=== PATIENT | male | born 2000 | race Two or more races ===

== ENCOUNTER 2024-10-10 08:40 | Emergency (ER) | payer SELFPAY ==
[2024-10-10 08:41] VITALS: BMI 28.2
[2024-10-10 08:45] VITALS: BP 112/80; PULSE 95; RESP 18; TEMP 36.6; O2SAT 96; BMI 28.5
--- NOTE | 2024-10-10 09:09 | PD.EDRME ---
Rapid Medical Screening Exam E Arrival date/time: 10/10/24 08:40 This is a 24-year-old male comes in with complaints of right lower abdominal pain has been going on for the past 2 days. Patient denies any nausea vomiting diarrhea. Patient states that he feels like he has a lot of air/gas in his stomach. Patient denies any past medical history. I have greeted and performed a focused initial assessment of this patient. Initial appropriate labs ordered at this time. A comprehensive ED assessment and evaluation of the patient and analysis of all test and completion of medical decision making process will be conducted by additional ED provider. Chief Complaint: Abdominal Pain Time Seen by Provider: 10/10/24 08:51 Vital signs: Vital Signs Temperature 97.8 F 10/10/24 08:45 Pulse Rate 95 10/10/24 08:45 Respiratory Rate 18 10/10/24 08:45 Blood Pressure 112/80 10/10/24 08:45 Pulse Oximetry (%) 96 10/10/24 08:45 Oxygen Delivery Method Room Air 10/10/24 08:45
[2024-10-10 10:29] LABS: Collection Type, Urine Voided
[2024-10-10 10:45] LABS: Basophils # (Auto) 0.1 Thou/mm3 (0.0-0.2); Basophils % (Auto) 1 % (0-2.5); Eosinophils # (Auto) 0.1 Thou/mm3 (0.0-0.5); Eosinophils % (Auto) 1 % (0-10); Hematocrit 48.5 % (41.0-53.0); Hemoglobin 16.2 g/dL (13.5-16.0); Immature Granulocytes % (Auto) 0 % (0-0); Immature Granulocytes Auto 0.02 Thou/mm3 (0.00-0.00); Lymphocytes # (Auto) 2.4 Thou/mm3 (1.0-4.8); Lymphocytes % (Auto) 26 % (10-50); Mean Corpuscular HGB Conc 33.4 g/dl (31.0-37.0); Mean Corpuscular Hemoglobin 28.2 pg (25.0-35.0); Mean Corpuscular Volume 85 fL (80-100); Monocytes # (Auto) 0.7 Thou/mm3 (0.0-0.8); Monocytes % (Auto) 7 % (0-12); Neutrophils # (Auto) 6.1 Thou/mm3 (1.8-7.7); Neutrophils % (Auto) 66 % (37-80); Nucleated Red Blood Cell % 0 /100 WBC (0); Platelet Count 205 Thou/mm3 (140-440); RDW Standard Deviation 42.1 fL (35.1-43.9); Red Blood Count 5.74 Miln/mm3 (4.50-5.90); White Blood Count 9.4 Thou/mm3 (3.8-10.6)
[2024-10-10 10:50] LABS: Alanine Aminotransferase 70 U/L (10-49); Albumin, Serum 4.8 gm/dL (3.5-5.0); Albumin/Globulin Ratio 1.8 (1.2-2.2); Alkaline Phosphatase 86 U/L (46-116); Anion Gap 8 (7-16); Aspartate Amino Transferase 27 U/L (0-34); BUN/Creatinine Ratio 12 Ratio (12-20); Bilirubin,Total 0.8 mg/dL (0.3-1.2); Blood Urea Nitrogen 11 mg/dL (9-23); Calcium 9.5 mg/dL (8.3-10.6); Calcium (Corrected) 9.5 mg/dL (8.5-10.1); Carbon Dioxide 29.2 mMol/L (20.0-31.0); Chloride 104 mMol/L (98-107); Creatinine (Component) 0.9 mg/dL (0.6-1.3); Estimated Creatinine Clearance 125.9 mL/min (>60); Globulin 2.7 gm/dL (2.3-3.5); Glucose 86 mg/dL (74-106); Lipase 64 U/L (12-53); Osmolality,Calculated 279 (275-295); Potassium 4.2 mMol/L (3.4-5.1); Sodium 141 mMol/L (136-145); Total Protein 7.5 gm/dL (5.7-8.2); eGFR > 60 See Note
[2024-10-10 10:55] LABS: Amorphous Crystals,Urine Present (Absent); Bilirubin,Urine Negative (Negative); Blood,Urine Trace (Negative); Clarity,Urine Turbid (Clear/Hazy); Color,Urine Yellow (Lt Yel-Yel); Culture Indicated,Urine Not Indicated; Glucose, Urine Negative (Negative); Ketones,Urine Negative (Negative); Leukocyte Esterase,Urine Negative (Negative); Nitrite,Urine Negative (Negative); Protein,Urine 2+ (Neg - Trace); RBC,Urine 3 /hpf (0-3); Specific Gravity,Urine 1.031 (1.001-1.035); Squamous Epithelial Cell,Urine 1 /hpf (0-5); Urobilinogen,Urine Negative mg/dL (0.0-1.0); WBC,Urine 3 /hpf (0-5)
[2024-10-10 12:15] VITALS: BP 116/81; PULSE 81; RESP 18; TEMP 36.8; O2SAT 98
--- NOTE | 2024-10-10 13:18 | EDNOTE_ITS ---
<Statement entered by Kylee Sánchez MD - 10/10/24 17:44> As co-signing physician, I was present and available for consult prn. I concur with the plan and care as documented by the midlevel provider. ED Abdominal Pain RME/HPI General Chief Complaint: Abdominal Pain Stated complaint: SHARP ABD PAIN X1 DAY Time seen by provider: 10/10/24 08:51 Arrival date/time: 10/10/24 08:40 RME / HPI RME / HPI narrative: 24-year-old male comes in with complaints of right upper abdominal pain has been going on for the past 2 days. It comes and goes, getting worse last night. Patient denies any nausea vomiting diarrhea. Patient states that he feels like he has a lot of air/gas in his stomach. Patient denies any past medical history. Denies any fever. Denies any diarrhea or constipation. Related Data Previous Rx's ?Medication ?Instructions ?Recorded dicyclomine 20 mg tablet 20 mg PO TID PRN abdominal p ain 10/10/24 #30 tabs Allergies Allergy/AdvReac Type Severity Reaction Status Date / Time No Known Allergies Allergy Verified 10/10/24 08:43 Review of Systems Review of Systems Narrative Review of Systems: Review of system reviewed and within normal limits except mentioned in HPI ED Exam Narrative Physical exam: VITAL SIGNS: Reviewed. GENERAL APPEARANCE: Alert and interactive, follows commands, no acute distress, HEAD AND FACE: Non-traumatic. ENT: PERRL, pink conjunctivitis, eyelid no trauma, Mucous membrane moist. NECK: Supple, nontender, no nuchal rigidity. CHEST: No tenderness, no crepitus, no paradoxical movement, no retractions. LUNGS: Clear, well ventilated, symmetric, no rales, no wheezing, no ronchi, no stridor, good breath sounds bilaterally. HEART: Regular rate, regular rhythm, no murmur, no gallops. ABDOMEN: Soft, positive bowel sounds, nondistended, no guarding, right upper quadrant tenderness, no rebound, no masses, RECTAL: Deferred. GENITAL: Deferred. NEUROLOGICAL: Gross motor function intact sensory function intact, Appropriate for age. MUSCULOSKELETAL: low back nontender, full range of motion. EXTREMITIES: Nontender, full range of motion. SKIN: Color pink, dry, no rash, no lacerations, no abrasions, no contusions. LYMPHATICS: Deferred. Course Quality Measures none Orders Category Date Time Status US gall bladder Stat Exams 10/10/24 13:18 Completed CBC Stat Lab 10/10/24 09:53 Completed Comprehensive Metabolic Panel Stat Lab 10/10/24 09:53 Completed Lipase Stat Lab 10/10/24 09:53 Completed Urinalysis, C/S if Indicated Stat Lab 10/10/24 09:20 Completed Ketorolac Inj [Toradol Inj] Med 10/10/24 13:18 Discontinued 30 mg IM X1 ONE Vital Signs Vital signs: Vital Signs Temperature 97.8 F 10/10/24 08:45 Pulse Rate 95 10/10/24 08:45 Respiratory Rate 18 10/10/24 08:45 Blood Pressure 112/80 10/10/24 08:45 Pulse Oximetry (%) 96 10/10/24 08:45 Oxygen Delivery Method Room Air 10/10/24 08:45 Abdominal Pain [facility] Narrative [facility] Narrative:: 24-year-old male comes in with complaints of right upper abdominal pain has been going on for the past 2 days. It comes and goes, getting worse last night. Patient denies any nausea vomiting diarrhea. Patient states that he feels like he has a lot of air/gas in his stomach. Patient denies any past medical history. Denies any fever. Denies any diarrhea or constipation. Ultrasound of the upper abdomen came up unremarkable. Patient CBC showed no leukocytosis CMP no abnormality noted except for slight ALT elevation, urinalysis no UTI Multiple reevaluation there is no tenderness noted on the right lower quadrant. Patient was advised to return to emergency room for worsening of symptoms. Patient appears nontoxic and hemodynamically stable. Patient discharged home and instructed to follow-up with primary care provider in 24 to 48 hours. Instructed to return to the emergency department immediately if worsening of symptoms Patient data External records reviewed:: None Clinical information provided by:: patient Social determinants that could affect healthcare access:: none Patient has the following chronic illnesses:: None How is presenting disease/condition affected by chronic disease/condition?: no chronic disease Evaluation data The following diagnostics were reviewed and interpreted by me:: lab results and radiology exam(s) Lab and/or radiology exams considered but not ordered:: None Interpretation Summary: See results in MDM Medications / Prescriptions Medications or Prescriptions considered but not ordered:: None Medication administrations:: Medication Administration History Discontinued Medications Ketorolac Tromethamine (Ketorolac Inj 60 Mg/2 Ml Vial) 30 mg IM X1 ONE Stop: 10/10/24 13:19 Last Admin: 10/10/24 14:24 Dose: 30 mg Documented By: FLACO Toradol IM Consultations Consultation(s) initiated? (list below): No Diagnosis Differential diagnosis abdominal pain: abdominal pain, constipation and other (Biliary colic) Most likely diagnosis given after review of the tests above:: Abdominal pain Admission Indicated Admission indicated?: not indicated Admission Request Was there a request for admission?: No Disposition Plan Disposition Plan: Discharge Discharge Attestation Discharge Attestation: The patient and all family members were given an opportunity to ask questions and understood the discharge instructions. Discharge instructions specifically effects, indications for sooner follow up or return to the emergency department, and the expected course of current diagnosis. Patient condition: Stable Discharge Plan Plan Patient Disposition: HOME (Self Care) Disposition Comment: Stable Prescriptions/Referrals Prescriptions/Med Rec: New dicyclomine 20 mg tablet 20 mg PO TID PRN (Reason: abdominal pain) Qty: 30 0RF Referrals: No Primary/Family,Physician [Primary Care Provider] - In 1 week Problem List Clinical Impression: Abdominal pain Patient/Caregiver Discharge Instructions Discharge Activity: activity as tolerated Education Materials: Abdominal Pain Additional Instructions: Thank you for the opportunity for serving you today. You are stable for discharged . You are advised to: Follow-up with your PCP in 1 to 2 days Return to ED for worsening of symptoms Increase oral fluids Print Language: Azerbaijani Stand Alone Forms: Louisa Award Info., Patient Portal Info Letter [place]QUEL Supervising Physician RAUL Supervising Physician: MD angel
--- NOTE | 2024-10-10 13:18 | XR_ITS ---
Examination: Abdomen sonogram, Limited Date and time of exam: October 10, 2024 1325 hours INDICATIONS: Onset right upper abdominal pain today Technique: Real-time chen scale transabdominal sonographic images of the upper abdomen obtained. Findings: Normal gallbladder. Normal common bile duct 0.5 cm Pancreatic head 2.7 cm Liver 15.9 cm fatty infiltration no focal liver lesions Normal hepatopedal portal venous flow IVC obscured by bowel gas IMPRESSION: Normal gallbladder Fatty liver
[2024-10-10] MEDS: KETOROLAC INJ 60 MG/2 ML VIAL 30 MG IM (14:24)
== END 2024-10-10 15:00 | disposition home or self-care (01) ==
PROVIDERS: Nurse Practitioner Family; Emergency Provider Emergency Medicine
DX: R10.11 Right upper quadrant pain (principal)
CPT/HCPCS: 36415; 76705; 80053; 81001; 83690; 85025; 96372; 99284; J1885